=== PATIENT | male | born 1960 | race Caucasian/White ===

== ENCOUNTER 2017-11-04 09:10 | Emergency (ER) | payer OTHER ==
[~2017-11-04 09:10] MED LIST: HYDR-4309 PO; IBU600 PO; IBUP-136 PO; LOR5 PO; LOR5/325 PO; NO ROUTINE MEDS
--- NOTE | 2017-11-04 09:12 | ER Report ---
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 This resulted in a cut to the top of the head. Patient did not lose consciousness although he felt like he was going to pass out and he currently feels nauseous. Patient is unsure of his last tetanus status. Patient denies any history of blood thinners. REVIEW OF SYSTEMS: Respiratory: No cough, no dyspnea. Cardiovascular: No chest pain, no palpitations. Gastrointestinal: No vomiting, no abdominal pain. Nausea Musculoskeletal: No back pain. Skin: Scalp laceration Neurologic: Headache Allergies: Coded Allergies: latex (Unverified Allergy, Unknown, 11/04/17) Home Meds Active Scripts Ondansetron Hcl (ZOFRAN) 4 Mg Tablet, 4 MG PO Q8H for Nausea, #15 TAB 0 Refills Prov:KRISTINA HERNANDEZ MD 11/04/17 Reported Medications Doxycycline Monohydrate (DOXYCYCLINE MONOHYDRATE) 100 Mg Tablet, BID 11/04/17 Discontinued Reported Medications Ibuprofen (IBUPROFEN) 200 Mg Capsule, 1 CAP PO Q6H, CAPSULE 09/12/14 Discontinued Scripts Hydrocodone Bit/Acetaminophen (HYDROCODON-ACETAMINOPHEN 5-325) 1 Each Tablet, 1 EACH PO Q4-6H PRN for PAIN, #20 TAB 0 Refills TAKE ONE TABLET BY MOUTH EVERY 4-6 HOURS NEEDED FOR PAIN Prov:SALAZAR RUSS MD 09/12/14 Hx Smoking: No Smoking Status: Never Smoker Hx Substance Use Disorder: Yes (Hx of marijuana use) Hx Alcohol Use: No Constitutional Vital Sign - Last 24 Hours 11/04/17 09:10 Temp 98.2 Pulse 68 Resp 18 B/P (MAP) 146/83 Pulse Ox 98 O2 Delivery Room Air Physical Exam General Appearance: The patient is alert, has no immediate need for airway protection and no current signs of toxicity. Eyes: Pupils equal and round no injection. Musculoskeletal: Neck: Neck is supple and non tender. Skin: No rashes or lesions. Patient has a 1 cm laceration to the scalp that will require primary repair. There is also a small cephalohematoma to the scalp. Medical Decision Making EKG/Imaging Imaging 11/04/2017 10:00:[address] scan of the head is unremarkable. ED Course/Re-evaluation ED Course 11/04/2017 9:20:15 am plan at this time will be to perform CT scan of the head. We will update the patient's tetanus status. We will give ibuprofen and Zofran for nausea and headache. Plan will be primary repair of the scalp laceration pending CT scan Procedure Procedure: Laceration repair. Verbal consent was obtained from the patient. The 1 cm laceration on the location was anesthetized in the usual fashion. The wound was cleansed, draped and explored to its base with a gloved finger. There were no deep structures involved. The wound was repaired with 2 danilo. The wound repair was simple. The procedure was performed by myself. Decision to Disposition Date: Nov 04, 2017 Decision to Disposition Time: 09:59 Depart Departure Latest Vital Signs Vital Signs Date Time Temp Pulse Resp B/P (MAP) Pulse Ox O2 Delivery O2 Flow Rate FiO2 11/04/17 09:10 98.2 68 18 146/83 98 Room Air Impression: Primary Impression: Scalp laceration Additional Impression: Concussion Condition: Improved Disposition: HOME OR SELF-CARE New Scripts Ondansetron Hcl (ZOFRAN) 4 Mg Tablet 4 MG PO Q8H for Nausea, #15 TAB 0 Refills Prov: KRISTINA HERNANDEZ MD 11/04/17 Departure Forms: ER Transition Record, Medications Reconciliation, Off Work/School Form, School or Work Release?: Work Number of days to be released: 1 Patient Portal Information Patient Instructions: Concussion (ED), Laceration (DC) Additional Instructions: Follow up with your primary care provider in 3-5 days to have the danilo removed Use topical Neosporin and bacitracin twice per day to your scalp wound for the next 2-3 days. Problem Qualifiers Primary Impression: Scalp laceration Encounter type: initial encounter Qualified Codes: S01.01XA - Laceration without foreign body of scalp, initial encounter Additional Impression: Concussion Encounter type: initial encounter Loss of consciousness presence/duration: without LOC Qualified Codes: S06.0X0A - Concussion without loss of consciousness, initial encounter KRISTINA HERNANDEZ MD Nov 04, 2017 09:12
[2017-11-04] MEDS ORDERED: DOXY-229 (09:17)
[2017-11-04] MEDS ORDERED: IBUPROFEN 600 MG TAB PO ONE (09:20)
[2017-11-04] MEDS ORDERED: DIPHTH/TETANUS/ACEL. PERTUSSIS IM ONLY ONE (09:20)
[2017-11-04] MEDS ORDERED: ONDANSETRON 4 MG ODT TABDP SL ONE (09:20)
[2017-11-04] MEDS ORDERED: TETRACAIN/EPI/LIDO GEL 3ML SYR TP ONE (09:20)
[2017-11-04] MEDS ORDERED: ONDA4TAB97 PO (09:56)
--- NOTE | 2017-11-04 09:57 | RADIOLOGY IMAGING REPORT ---
FACILITY: [facility] [place] PATIENT NAME: Erick Welch : 1960 MR: [id number] V: [id number] EXAM DATE: ORDERING PHYSICIAN: KRISTINA HERNANDEZ TECHNOLOGIST: Location: [facility] [place] Patient: Erick Welch : 1960 Visit/Account:[id number] Date of Sevice: 11/04/2017 HEAD W/O CONTRAST HISTORY: Patient hit in head by a falling coffee mug COMPARISON STUDIES: None. TECHNIQUE: Contiguous axial images were obtained from the skull base to the vertex. One of the following dose optimization techniques was utilized in the performance of this exam: Autom ated exposure control; adjustment of the mA and/or kV according to the patient's size; or use of an i terative reconstruction technique. Specific details can be referenced in the facility's radiology C T exam operational policy. FINDINGS: Hemorrhage: There is no intraparenchymal or extra-axial mass or bleed. Ventricles / sulci / fissures: Negative Masses / midline shift: Negative White matter and sparks matter: White matter is normal. Extra-axial spaces: Negative Bones/skull base: Negative Visualized mastoid air cells / paranasal sinuses: Sinuses are unremarkable. The nasal septum deviate s mildly to the right and there is a bone spur projecting from the right nasal septum. Scalp and soft tissues: There are no findings of a scalp hematoma. Vascular/other findings: Negative. IMPRESSION: Unremarkable CT scan of the brain. No findings of a scalp hematoma or intracranial abnormality relat ed to recent trauma. Report Dictated By: Rodriguez Zee MD at 11/04/2017 9:52 AM Report E-Signed By: Rodriguez Zee MD at 11/04/2017 9:54 AM WSN:[email or web address]
[2017-11-04 10:00] VITALS: BP 126/81
== END 2017-11-04 10:05 | disposition home or self-care (01) ==
LOC: ER 09:13
DX: S01.01XA Laceration without foreign body of scalp, initial encounter (principal); R11.0 Nausea; S06.0X0A Concussion without loss of consciousness, initial encounter
CPT/HCPCS: 12001; 70450; 90471; 90715; 99284; S0119

== ENCOUNTER → 2018-07-07 | Outpatient (REF) ==
[~2018-07-07] MED LIST changes: +DOXY-229; -HYDR-4309 PO; +HYDR-653 PO; +ONDA4TAB97 PO
--- NOTE | 2018-07-07 13:14 | RADIOLOGY IMAGING REPORT ---
FACILITY: [facility] [place] PATIENT NAME: Erick Welch : 1960 MR: [id number] V: [id number] EXAM DATE: ORDERING PHYSICIAN: EVANGELINA HOWARD TECHNOLOGIST: [place] [facility] [place]: Erick Welch : 1960 Visit/Account:[id number] Date of Sevice: 07/07/2018 Chest with lateral, two views. HISTORY: Shortness of breath, cough. COMPARISON: 05/08/2008. The ascending aorta is minimally elongated. The heart and mediastinum are otherwise unremarkable. N o bulky adenopathy. Pulmonary vessels are unremarkable. The lungs are clear. The pleural surfaces a re unremarkable. No pneumothorax. No acute bony abnormalities. IMPRESSION: No evidence of acute cardiopulmonary disease. Report Dictated By: Johan Lara MD at 07/07/2018 1:08 PM Report E-Signed By: Johan Lara MD at 07/07/2018 1:10 PM WSN:[email or web address]
== END ==
LOC: RAD 12:37
PROVIDERS: ATTEND Family Medicine
DX: R06.02 Shortness of breath (principal)
CPT/HCPCS: 71046

== ENCOUNTER 2018-07-29 00:11 | Day surgery (SDC) | payer OTHER ==
[~2018-07-29] VITALS: Ht 171.4 cm; Wt 96.6 kg
[2018-07-29] VITALS (7 sets, daily range): BP systolic 94–113; BP diastolic 56–85
[~2018-07-29 00:11] MED LIST changes: +ALB6.7R INH
[2018-07-29] MEDS ORDERED: PROPOFOL EMUL(*) 10MG/ML 20 ML 40 ML ONE (06:32)
[2018-07-29] MEDS ORDERED: LIDOCAINE/SOD BICARB 8.4% SYR ID ONE (11:10)
[2018-07-29] MEDS ORDERED: NORMOSOL R SOLN(*) 1000 ML BAG 1,000 ML IV PRN (11:10)
--- NOTE | 2018-07-29 12:13 | Short(Outpt) Discharge Summary ---
Discharge Summary Reason for Hosp/Final Diag: (1) Encounter for screening colonoscopy Hospital Course & Plan: pt presented for colonoscopy. he tolerated the procedure well. he will bed discharged home when criteria met. Departure Discharge to: Home Discharge Instructions Home Meds Reported Medications Albuterol Sulfate (PROVENTIL HFA) 6.7 Gm Inh, 1-2 PUFF INH PRN, INH 07/13/18 Diet: Regular Activity: As Tolerated Special Instructions: we will call you in 10 days with biopsy results. JACEK CHANDRA July 29, 2018 12:13
--- NOTE | 2018-07-29 12:59 | NUR ---
PT. PLACED ON RA. GIVEN WATER. DISCHARGE INSTRUCTIONS REVIEWED WITH .
--- NOTE | 2018-07-29 13:22 | NUR ---
RN INTO ROOM TO CHECK ON PT. NO CONCERNS. VSS. REQUESTING MORE TIME TO REST. ADVISED WILL BE BACK TO CHECK ON PT. IN 15 MINS.
== END 2018-07-29 13:50 | disposition home or self-care (01) ==
LOC: OR 00:11
PROVIDERS: ATTEND Surgery
DX: Z12.11 Encounter for screening for malignant neoplasm of colon (principal); K63.5 Polyp of colon; J45.909 Unspecified asthma, uncomplicated; Z79.899 Other long term (current) drug therapy
CPT/HCPCS: 00813; 45385; 88305; J2704

== ENCOUNTER → 2018-09-21 | Outpatient (REF) | LOC: RESP 01:56 → EDSTATUS 13:00 | PROVIDERS: ATTEND Family Medicine | DX: R94.2 Abnormal results of pulmonary function studies (principal) | CPT/HCPCS: 94060; 94726; 94729 ==